=== PATIENT | male | born 1990 | race Caucasian/White ===

== ENCOUNTER 2025-02-19 09:16 | Emergency (ER) | payer BC, SELFPAY ==
[2025-02-19] VITALS (24 sets, daily range): BP systolic 101–133; BP diastolic 46–97; PULSE 93–151; RESP 13–29; TEMP 37.4–39.5; O2SAT 93–100
--- NOTE | ~2025-02-19 | CT_ITS ---
EXAM: CT abdomen pelvis w con - 02/19/2025 11:05 CDT History: 34 years old Male with lower abd pain, sepsis, rectal bleeding TECHNIQUE: Multidetector CT of the abdomen and pelvis with intravenous contrast. Coronal and sagitta l reformats were also provided for review. Automatic exposure control was used for this study. CONTRAST: 100 cc of Optiray 350 was used for this study. COMPARISON: None Available. FINDINGS: VISUALIZED CHEST: Visualized lungs are clear. ABDOMEN and PELVIS: LIVER: Within normal limits. GALLBLADDER: No calcified gallstones. BILE DUCTS: No dilatation. SPLEEN: Within normal limits. PANCREAS: Within normal limits. ADRENAL GLANDS: Within normal limits. KIDNEYS and URETERS: No hydronephrosis or hydroureter. No nephroureterolithiasis. URINARY BLADDER: Diffuse thickening of the urinary bladder wall. STOMACH and BOWEL: No abnormal bowel wall thickening. No obstruction or pneumatosis. Normal appendix. REPRODUCTIVE ORGANS: Within normal limits. MESENTERY/PERITONEAL CAVITY: No free fluid or pneumoperitoneum. LYMPH NODES: No abdominal or pelvic lymphadenopathy. ABDOMINAL WALL: Within normal limits. VASCULATURE: Within normal limits. MUSCULOSKELETAL: Multilevel degenerative changes of the spine. IMPRESSION: Diffuse thickening of the urinary bladder wall. Correlate with urine analysis to rule out acute cysti tis. Reviewed, dictated and finalized at location A. IMPRESSION: Diffuse thickening of the urinary bladder wall. Correlate with urine analysis t o rule out acute cystitis.
--- NOTE | ~2025-02-19 | XR_ITS ---
EXAM/PROCEDURE: XR chest 1V portable - 02/19/2025 10:05 CDT HISTORY: 34 years old Male with weakness TECHNIQUE: Two view(s) of the chest. COMPARISON: None available. FINDINGS: LUNGS/ PLEURA: No focal consolidation. Mild perihilar bronchial wall thickening. HEART/ MEDIASTINUM: Heart appears normal in size. BONES: No acute osseous abnormality. OTHER: Visualized upper abdomen is unremarkable. IMPRESSION: No focal consolidation. Mild perihilar bronchial wall thickening, findings suggestive of respiratory bronchiolitis. Reviewed, dictated and finalized at location A. IMPRESSION: No focal consolidation. Mild perihilar bronchial wall thickening, findings sugg estive of respiratory bronchiolitis.
--- NOTE | 2025-02-19 09:32 | ECG_ITS ---
Test Date: 2025-02-19 09:41:46 Measurements Intervals [place] Rate: 142 P: 16 WI: 120 QRS: -12 QRSD: 76 T: 13 QT: 268 QTc: 412 Interpretive Statements SINUS TACHYCARDIA ABNORMAL RHYTHM ECG No previous ECG available for comparison Electronically Signed On 02-19-2025 11:27:32 CDT by Gordo Jeffers M.D.
--- NOTE | 2025-02-19 09:44 | PC.NURSE ---
EDP Dr. Lancaster gave verbal order for Tylenol 1000mg due to pt 103.1 fever
--- NOTE | 2025-02-19 09:51 | ED_ITS ---
HPI - General Adult General Chief complaint: Weakness Stated complaint: weakness Time Seen by Provider: 02/19/25 09:29 Source: patient Mode of arrival: EMS Limitations: no limitations History of Present Illness HPI narrative: Patient is a 34 y/o male who presents to the ED via EMS with report of diarrhea, fever, rectal bleeding. Patient reports he has not been feeling well over the past several days. Reports having diarrhea with dark red rectal bleeding over the past 4 days. Has history of previous hemorrhoids. Reports abdominal pain related to bowel movements, but otherwise denies significant pain. Began having subjective fevers and cold shaking chills last night and today. Feels weak and lightheaded. Also reports slight rhinorrhea, congestion recently. Denies sick contacts. 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 Denies CP, SOB, cough, urinary trouble. Related Data Allergies Allergy/AdvReac Type Severity Reaction Status Date / Time No Known Allergies Allergy Verified 02/19/25 10:05 Review of Systems 2 Review of Systems: All systems reviewed & are unremarkable except as noted in HPI. All systems reviewed & are unremarkable except as noted in HPI and below Exam 2 Narrative: GENERAL: Mildly ill-appearing, obese with BMI of 34.3, non-toxic, in no acute distress. HEAD: Normocephalic, atraumatic. RESPIRATORY: Airway patent, respirations nonlabored. Clear to auscultation bilaterally, no rales, rhonchi, wheezing. CARDIOVASCULAR: Tachycardic with regular rhythm without murmurs, rubs, or gallops. ABDOMINAL: Soft, mild diffuse tenderness, more focal TTP in LLQ, nondistended. Normoactive BS. RECTAL: Normal external genitalia. Normal rectal tone. Stool light brown, guaiac positive. MUSCULOSKELETAL: Moves all extremities. No gross deformities. SKIN: Warm, dry, normal color. NEURO: A&O X3. Speech clear. Cranial nerves II-XII grossly intact. Steady gait. No ataxic movements. PSYCHIATRIC: Appropriate mood and affect. Normal interaction. Course Vital Signs Vital signs: Vital Signs Temperature 103.1 F H 02/19/25 09:12 Pulse Rate 151 H 02/19/25 09:12 Respiratory Rate 15 02/19/25 09:12 Blood Pressure 113/79 02/19/25 09:12 Pulse Oximetry 97 02/19/25 09:12 Oxygen Delivery Room Air 02/19/25 09:12 Temperature 99.5 F 02/19/25 13:46 Pulse Rate 96 02/19/25 13:46 Respiratory Rate 20 02/19/25 13:46 Blood Pressure 132/62 02/19/25 13:46 Pulse Oximetry 100 02/19/25 13:46 Oxygen Delivery Room Air 02/19/25 09:12 Medical Decision Making MDM Narrative Medical decision making narrative: Patient presented to ED with weakness, lightheadedness, fevers, rectal bleeding, abd pain, congestion/rhinorrhea. Patient tachycardic to the 150s and febrile to 103.1 upon arrival. Tylenol given. Sepsis workup was initiated. 30 cc/kilogram fluid bolus was ordered. EKG was sinus tachycardia. No concerning ST changes. Stool was brown on digital rectal exam, but was guaiac positive. Cbc without leukocytosis or anemia. H&H is stable at 15. Platelets within normal range. CMP with bicarb 21, anion gap of 13. Consistent with very mild dehydration. Blood glucose is within normal range. Creatinine 1.19. No records to compare to. Fluids are ongoing. Lactic acid within normal range at 1.8. Otherwise stable electrolytes. Normal LFTs. CK within normal range. CRP is elevated. Viral swabs are negative. Urinalysis is clear. Chest x-ray showing evidence of respiratory bronchiolitis, but no focal consolidation. CT scan of abdomen/pelvis was obtained and showing possible cystitis changes, otherwise unremarkable. Again urine sample here is negative for any signs of infection. Vital signs have stabilized after fluid administration and defervescence. Discussed overall reassuring workup with patient and significant other at bedside. No evidence of sepsis at this time. Suspect viral etiology/viral infection, hemorrhoids. Discussed continue management of such. Otherwise feel patient is safe for discharge home at this time with strict return precautions. I did also discussed case with Dr. Prieto, GI, recommended outpatient follow-up for colonoscopy. Patient and family are in agreement with plan. Again emphasized strict return precautions. They voiced understanding. Discharged in stable condition. Vital signs stable at time of D/C. Medical Records Medical records reviewed: Yes I reviewed the external patient's medical records. Vital Signs Vital Signs: Vital Signs Temperature 103.1 F H 02/19/25 09:12 Pulse Rate 151 H 02/19/25 09:12 Respiratory Rate 15 02/19/25 09:12 Blood Pressure 113/79 02/19/25 09:12 Pulse Oximetry 97 02/19/25 09:12 Oxygen Delivery Room Air 02/19/25 09:12 Temperature 99.5 F 02/19/25 13:46 Pulse Rate 96 02/19/25 13:46 Respiratory Rate 20 02/19/25 13:46 Blood Pressure 132/62 02/19/25 13:46 Pulse Oximetry 100 02/19/25 13:46 Oxygen Delivery Room Air 02/19/25 09:12 Lab Data Lab results reviewed: Yes I reviewed the patient's lab results. 02/19/25 09:54 02/19/25 09:53 Labs: Lab Results 02/19/25 02/19/25 02/19/25 Range/Units 09:47 09:53 09:54 WBC 6.5 (4.5-10.0) K/mm3 RBC 5.12 (4.6-6.20) M/mm3 Hgb 15.0 (14.0-18.0) g/dL Hct 45.3 (42.0-52.0) % MCV 88.5 (80-100) fl MCH 29.3 (26-34) pg MCHC 33.1 (32-36) g/dl RDW 13.2 (11.5-14.5) % Plt Count 278 (150-375) k/mm3 MPV 9.7 (7.4-10.4) fl Immature Gran % (Auto) 0.5 (0-0.5) % Neut % (Auto) 83.6 H (45.5-73.1) % Lymph % (Auto) 12.6 L (18.3-44.2) % [place] % (Auto) 2.5 L (2.6-8.5) % Eos % (Auto) 0.5 (0-4.4) % Baso % (Auto) 0.3 (0.2-1.2) % Lymph # (Auto) 0.81 L (0.9-3.2) K/mm3 [place] # (Auto) 0.2 (0.1-0.6) K/mm3 Eos # (Auto) 0.0 (0-0.3) K/mm3 Baso # (Auto) 0.0 (0.0-0.1) K/mm3 Abs Immat Gran (auto) 0.03 (0.00-0.031) K/mm3 Absolute Neuts (auto) 5.4 (1.3-6.7) K/mm3 Absolute Nucleated RBC 0.000 (0.0-0.012) K/mm3 Nucleated RBC % 0.0 (0.0-0.2) % PT 13.9 (11.1-14.7) Seconds INR 1.1 APTT 29.1 (22.3-36.8) Seconds Sodium 136 L (137-145) mmol/L Potassium 3.8 (3.4-5.0) mmol/L Chloride 102 (98-107) mmol/L Carbon Dioxide 21 L (22-30) mmol/L Anion Gap 13 H (4-12) mmol/L BUN 15 (9-20) mg/dL Creatinine 1.19 (0.7-1.3) mg/dL Estim Creat Clear Calc 91 ml/min Estimated GFR > 60 (59 - ) Glucose 113 H (65-110) mg/dL Lactic Acid 1.8 (0.7-2.0) mmol/L Calcium 9.1 (8.4-10.2) mg/dL Magnesium 1.7 (1.6-2.3) mg/dL Total Bilirubin 1.1 (0.2-1.3) mg/dL AST 39 (17-59) U/L ALT 43 (6-50) U/L Alkaline Phosphatase 56 (38-126) U/L Total Creatine Kinase 124 (55-170) U/L C-Reactive Protein 6.6 H (<1.0) mg/dL Total Protein 7.9 (6.3-8.2) g/dL Albumin 4.5 (3.5-5.1) g/dL Urine Color (Yellow) Urine Appearance (Clear) Urine pH (5.0-9.0) Ur Specific [place] (1.001-1.035) Urine Protein (Negative) mg/dL Urine Glucose (UA) (Negative) mg/dL Urine Ketones (Negative) mg/dL Ur Blood (Man) (Negative) Urine Nitrate (Negative) Urine Bilirubin (Negative) Urine Urobilinogen (<2.0) mg/dL Leukocyte Esterase Rfl (Negative) JEREMIE/UL Urine RBC (0-2) /hpf Urine WBC (0-3) /hpf Ur Squamous Epith Cells (Few) /hpf Urine Bacteria /hpf Urine Casts Influenza A (RT-PCR) Negative (Negative) Influenza B (RT-PCR) Negative (Negative) RSV (RT-PCR) Negative (Negative) SARS-CoV-2 RNA (RT-PCR) Negative (Negative) Blood Type AB Positive Antibody Screen Negative 02/19/25 Range/Units 11:53 WBC (4.5-10.0) K/mm3 RBC (4.6-6.20) M/mm3 Hgb (14.0-18.0) g/dL Hct (42.0-52.0) % MCV (80-100) fl MCH (26-34) pg MCHC (32-36) g/dl RDW (11.5-14.5) % Plt Count (150-375) k/mm3 MPV (7.4-10.4) fl Immature Gran % (Auto) (0-0.5) % Neut % (Auto) (45.5-73.1) % Lymph % (Auto) (18.3-44.2) % [place] % (Auto) (2.6-8.5) % Eos % (Auto) (0-4.4) % Baso % (Auto) (0.2-1.2) % Lymph # (Auto) (0.9-3.2) K/mm3 [place] # (Auto) (0.1-0.6) K/mm3 Eos # (Auto) (0-0.3) K/mm3 Baso # (Auto) (0.0-0.1) K/mm3 Abs Immat Gran (auto) (0.00-0.031) K/mm3 Absolute Neuts (auto) (1.3-6.7) K/mm3 Absolute Nucleated RBC (0.0-0.012) K/mm3 Nucleated RBC % (0.0-0.2) % PT (11.1-14.7) Seconds INR APTT (22.3-36.8) Seconds Sodium (137-145) mmol/L Potassium (3.4-5.0) mmol/L Chloride (98-107) mmol/L Carbon Dioxide (22-30) mmol/L Anion Gap (4-12) mmol/L BUN (9-20) mg/dL Creatinine (0.7-1.3) mg/dL Estim Creat Clear Calc ml/min Estimated GFR (59 - ) Glucose (65-110) mg/dL Lactic Acid (0.7-2.0) mmol/L Calcium (8.4-10.2) mg/dL Magnesium (1.6-2.3) mg/dL Total Bilirubin (0.2-1.3) mg/dL AST (17-59) U/L ALT (6-50) U/L Alkaline Phosphatase (38-126) U/L Total Creatine Kinase (55-170) U/L C-Reactive Protein (<1.0) mg/dL Total Protein (6.3-8.2) g/dL Albumin (3.5-5.1) g/dL Urine Color Yellow (Yellow) Urine Appearance Clear (Clear) Urine pH 6.0 (5.0-9.0) Ur Specific [place] 1.022 (1.001-1.035) Urine Protein Trace (Negative) mg/dL Urine Glucose (UA) Negative (Negative) mg/dL Urine Ketones Trace H (Negative) mg/dL Ur Blood (Man) Negative (Negative) Urine Nitrate Negative (Negative) Urine Bilirubin Negative (Negative) Urine Urobilinogen 1.0 (<2.0) mg/dL Leukocyte Esterase Rfl Negative (Negative) J[place]/UL Urine RBC 0-2 (0-2) /hpf Urine WBC 0-5 (0-3) /hpf Ur Squamous Epith Cells None seen (Few) /hpf Urine Bacteria None seen /hpf Urine Casts 0-2 Influenza A (RT-PCR) (Negative) Influenza B (RT-PCR) (Negative) RSV (RT-PCR) (Negative) SARS-CoV-2 RNA (RT-PCR) (Negative) Blood Type Antibody Screen Imaging Data Attestation: I personally reviewed and interpreted this imaging study as follows: Radiologist's impression: ITS Impressions Chest X-Ray 02/19/25 10:12 IMPRESSION: No focal consolidation. Mild perihilar bronchial wall thickening, findings suggestive of respiratory bronchiolitis. Abdomen/Pelvis CT 02/19/25 11:19 IMPRESSION: Diffuse thickening of the urinary bladder wall. Correlate with urine analysis to rule out acute cystitis. ECG Data EKG #1: Attestation: I personally reviewed and interpreted this ECG as follows: ECG completion date: 02/19/25 ECG completion time: 09:41 EKG Interpretation: tachycardia (142), sinus rhythm and non-specific ST changes Critical Care Time Critical Care Time Critical Care Time: Yes Total Critical Care Time: 35 Discharge Plan Discharge Clinical Impression: Acute viral syndrome, Rectal bleeding Upper respiratory infection Qualifiers: URI type: unspecified URI Qualified Code(s): J06.9 - Acute upper respiratory infection, unspecified Patient Disposition: Home Condition: Stable Instructions: Antibiotic Form, Rectal Bleeding (ED), Fever in Adults (ED), Upper Respiratory Infection (ED), Viral Syndrome (ED) Additional Instructions: Your workup here was overall reassuring. It is likely you have a viral infection. Continue Tylenol/ibuprofen as needed for pain/fevers. Stay very well hydrated. You may use [id number] cough and cold medicines for symptom relief if needed, Delsym, Mucinex, DayQuil, NyQuil, Sudafed, Robitussin, TheraFlu. Continue to monitor rectal bleeding. Follow-up with GI for further evaluation and likely outpatient colonoscopy. Return to the ED if you experience worsening or severe symptoms, severe bleeding, severe pain, unable to keep down food or drink, persistent fevers, difficulty breathing or feeling short of breath, or any other symptoms of concern. Patient Language: Setswana Follow-up/Referrals: PHYSICIAN,COUNSELLING PSYCHOLOGIST [Primary Care Provider] - Foreign Trent MD [Physician] - (PRIMARY CARE) Clinton Prieto MD [Physician] - (GI) Stand Alone Forms: Work/School Release IP Time of Disposition: 14:11
[2025-02-19 10:06] LABS: Hematocrit 45.3 % (42.0-52.0); Hemoglobin 15.0 g/dL (14.0-18.0); Immature Granulocyte Percent A 0.5 % (0-0.5); Lymphocytes Absolute Auto 0.81 K/mm3 (0.9-3.2); Mean Corpuscular HGB Conc 33.1 g/dl (32-36); Mean Corpuscular Hemoglobin 29.3 pg (26-34); Mean Corpuscular Volume 88.5 fl (80-100); Nucleated Red Blood Cells Absolute Auto 0.000 K/mm3 (0.0-0.012); Nucleated Red Blood Cells Perc 0.0 % (0.0-0.2); Platelet Count Result 278 k/mm3 (150-375); Red Blood Count 5.12 M/mm3 (4.6-6.20); White Blood Count 6.5 K/mm3 (4.5-10.0)
[2025-02-19] MEDS: ACETAMINOPHEN 500 MG TABLET 1000 MG (10:06)
[2025-02-19] MEDS: SODIUM CHLORIDE 0.9% IV 100 ML 999 ML IV CONT (10:07)
[2025-02-19] MEDS: SODIUM CHLORIDE 0.9% IV 1,000 ML 999 ML IV CONT ×3 (10:07)
[2025-02-19 10:30] LABS: Influenza A QL RT-PCR Negative (Negative); Influenza B QL RT-PCR Negative (Negative); RSV RNA, RT-PCR Negative (Negative); SARS-CoV-2 RNA PCR Negative (Negative)
[2025-02-19 10:34] LABS: Alanine Aminotransferase 43 U/L (6-50); Albumin Level 4.5 g/dL (3.5-5.1); Alkaline Phosphatase 56 U/L (38-126); Anion Gap 13 mmol/L (4-12); Aspartate Amino Transferase 39 U/L (17-59); Bilirubin,Total 1.1 mg/dL (0.2-1.3); Blood Urea Nitrogen 15 mg/dL (9-20); CRP 6.6 mg/dL (<1.0); Calcium 9.1 mg/dL (8.4-10.2); Carbon Dioxide 21 mmol/L (22-30); Chloride 102 mmol/L (98-107); Creatine Kinase 124 U/L (55-170); Estimated CRCL calculation 91 ml/min; Estimated Glomerular Filt Rate > 60; Glucose 113 mg/dL (65-110); Magnesium 1.7 mg/dL (1.6-2.3); Potassium 3.8 mmol/L (3.4-5.0); Sodium 136 mmol/L (137-145); Total Protein 7.9 g/dL (6.3-8.2)
--- OUTSIDE RECORDS SUMMARY | 2025-02-19 10:36 | XMS_ITS | Clinical Summary ---
Author Organization [facility] Address [address] [place] [address] Care Team Providers Care Design Engineer Name Role Phone Unavailable Primary Care Provider Unavailabl e Allergies No known active allergies Medications No known medications Active Problems No known active problems Social History Tobacco Use Types Packs/Day Years Used Date Smoking Tobacco: Never Assessed Sex and Gender Information Value Date Recorded Sex Assigned at Not on file Legal Sex Male 12:08 PM CDT Gender Identity Not on file Sexual Orientation Not on file Last Filed Vital Signs Vital Sign Reading Time Taken Comments Blood Pressure 132/90 09/08/2022 12:55 PM [employer]OWER [employer]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 Pulse 106 09/08/2022 12:55 PM POWER PR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 Temperature 37 C (98.6 F) 09/08/2022 12:55 PM P[employer] PR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 Respiratory Rate 16 08/03/2022 5:16 PM POWER PR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 Oxygen Saturation 97% 09/08/2022 12:55 PM POWER PR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 Inhaled Oxygen Concentration - - Weight 102.1 kg (225 lb) 08/03/2022 5:16 PM POWER PR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 Height 170.2 cm (5' 7) 08/03/2022 5:16 PM POWER PR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 Body Mass Index 35.24 08/03/2022 5:16 PM POWER PR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 Plan of Treatment Health Maintenance Due Date Last Done Comments HPV VACCINES (1 - Male 3-dose series) 12/27/2006 DTAP/TDAP/TD VACCINES (1 - Tdap) 12/27/2010 HEPATITIS B VACCINES (1 of 3 - 19+ 3-dose series) 12/01 INFLUENZA VACCINE (#1) 2025 Insurance [employer] BLUE ACCESS CHOICE BLUE ACCESS CHOICE
[2025-02-19 10:44] LABS: INR 1.1; Prothrombin Time 13.9 Seconds (11.1-14.7)
[2025-02-19 10:45] LABS: Partial Thromboplastin Time 29.1 Seconds (22.3-36.8)
[2025-02-19 12:05] LABS: Add Urine Microscopic? YES; Appearance Urine Clear (Clear); Glucose Urine UA Negative (Negative); Leukocyte Esterase Ur Negative LEU/UL (Negative); Nitrate Urine Negative (Negative); Non Pathogenic Casts 0-2; Specific Grav Ur 1.022 (1.001-1.035)
[2025-02-19] MEDS: PANTOPRAZOLE SODIUM IV 40 MG VIAL IV PUSH (13:56)
== END 2025-02-19 14:33 | disposition home or self-care (01) ==
PROVIDERS: Emergency Provider Physician Assistant
DX: B34.9 Viral infection, unspecified (principal); J06.9 Acute upper respiratory infection, unspecified; K62.5 Hemorrhage of anus and rectum; R00.0 Tachycardia, unspecified
CPT/HCPCS: 36415; 71045; 74177; 80053; 81001; 82550; 83605; 83735; 85025; 85610; 85730; 86140; 86850; 86900; 86901; 87040; 87637; 93005; 96361; 96374; 99284; A9270; J2470; J7030; Q9967